=== PATIENT | female | born 1945 | race Caucasian/White ===

== ENCOUNTER 2019-03-23 12:05 | Day surgery (SDC) | payer MEDICARE ==
[~2019-03-23] VITALS: Ht 160 cm; Wt 81.0 kg
[2019-03-23] MEDS ORDERED: LACTATED RINGERS 1,000 ML IV SCH (12:45)
[2019-03-23 12:57] VITALS: BP 125/79
[2019-03-23] MEDS ORDERED: RISP1TAB45 PO (12:57)
[2019-03-23] MEDS ORDERED: DIVA500T2 PO (12:57)
[2019-03-23] MEDS ORDERED: LIDOCAINE-MPF 1%, 2ML INFIL ONE (13:00)
[2019-03-23 13:10] VITALS: BP 125/79
[2019-03-23] MEDS ORDERED: PROPOFOL 10 MG/ML, 20ML ONE (13:37)
[2019-03-23] MEDS ORDERED: ONDANSETRON ODT 8 MG PO PRN (14:30)
[2019-03-23] MEDS ORDERED: FENTANYL PF 100 MCG/2ML IV PRN (14:30)
[2019-03-23] MEDS ORDERED: MIDAZOLAM 1 MG/ML, 2ML IV PRN (14:30)
[2019-03-23] MEDS ORDERED: OXYcodone 5 MG/5 ML ORAL.SOL UDC PO PRN (14:30)
[2019-03-23] MEDS ORDERED: ONDANSETRON 2MG/ML, 2ML IV PRN (14:30)
[2019-03-23] MEDS ORDERED: DIAZEPAM 5 MG/ML, 2ML IVPush PRN (14:30)
== END 2019-03-23 15:45 | disposition home or self-care (01) ==
LOC: OUT 12:05
PROVIDERS: ATTEND Internal Medicine Gastroenterology
DX: D12.8 Benign neoplasm of rectum (principal); Z98.0 Intestinal bypass and anastomosis status; Z85.038 Personal history of other malignant neoplasm of large intestine; Z88.5 Allergy status to narcotic agent
CPT/HCPCS: 45342; 88305; 93005; J2704; J7120

== ENCOUNTER → 2020-05-18 | Outpatient (CLI) | payer MEDICARE ==
[~2020-05-18] MED LIST: DIVA500T2 PO; RISP1TAB45 PO
== END | disposition home or self-care (01) ==
LOC: STAR 16:04
PROVIDERS: ATTEND Surgery
DX: Z20.828 Contact with and (suspected) exposure to other viral communicable diseases (principal)
CPT/HCPCS: 36415; 87635

== ENCOUNTER 2020-05-23 09:27 | Day surgery (SDC) | payer MEDICARE ==
[~2020-05-23] VITALS: Ht 160 cm; Wt 83.3 kg
[~2020-05-23 09:27] MED LIST changes: +BUPIVACAINE/PF 0.5% ONE; +EPINEPHRINE 1 MG/ML, 1ML ONE
[2020-05-23] MEDS ORDERED: FENTANYL PF 100 MCG/2ML ONE (09:45)
[2020-05-23] MEDS ORDERED: HYDROcodone/APAP 7.5-325MG/15ML UDC PO PRN (10:00)
[2020-05-23] MEDS ORDERED: PROMETHAZINE 25 MG/ML, 1ML IVPush PRN (10:00)
[2020-05-23] MEDS ORDERED: MEPERIDINE/PF 25MG/0.5ML IVPush PRN (10:00)
[2020-05-23] MEDS ORDERED: DIPHENHYDRAMINE 50 MG/ML, 1ML IVPush PRN (10:00)
[2020-05-23] MEDS ORDERED: LABETALOL 5MG/ML, 20ML IV PRN (10:00)
[2020-05-23] MEDS ORDERED: FENTANYL PF 100 MCG/2ML IV PRN (10:00)
[2020-05-23] MEDS ORDERED: hydrALAzine 20 MG/ML, 1ML IV PRN (10:00)
[2020-05-23] MEDS ORDERED: HYDROmorphone 1 MG/ML, 1ML INJ IVPush PRN (10:00)
[2020-05-23] MEDS ORDERED: HALOPERIDOL 5 MG/ML IV PRN (10:00)
[2020-05-23] MEDS ORDERED: LACTATED RINGERS 1,000 ML IV SCH (10:23)
[2020-05-23 10:30] VITALS: BP 130/77
[2020-05-23] MEDS ORDERED: CHLORHEXIDINE 15 ML UDC MM ONE (10:30)
[2020-05-23] MEDS ORDERED: ONDANSETRON 2MG/ML, 2ML ONE (11:12)
[2020-05-23] MEDS ORDERED: GLYCOPYRROLATE 0.2MG/1ML, 5ML ONE (11:12)
[2020-05-23] MEDS ORDERED: PROPOFOL 10 MG/ML, 20ML ONE (11:12)
[2020-05-23] MEDS ORDERED: CEFAZOLIN 1,000 MG ONE (11:12)
[2020-05-23] MEDS ORDERED: NEOSTIGMINE 1 MG/ML, 10ML ONE (11:12)
[2020-05-23] MEDS ORDERED: ROCURONIUM 10MG/ML,5ML ONE (11:12)
[2020-05-23] MEDS ORDERED: SUCCINYLCHOLINE 20 MG/ML, 10ML ONE (11:12)
[2020-05-23] MEDS ORDERED: DEXAMETHASONE 4 MG/ML, 1ML ONE (11:12)
[2020-05-23] MEDS ORDERED: THROMBIN 20,000 UNIT VIAL TP ONE (12:25)
== END 2020-05-23 13:20 | disposition home or self-care (01) ==
LOC: OUT 09:27
PROVIDERS: ATTEND Surgery
DX: K62.89 Other specified diseases of anus and rectum (principal); D12.8 Benign neoplasm of rectum; R15.9 Full incontinence of feces; F31.9 Bipolar disorder, unspecified; Z79.899 Other long term (current) drug therapy; Z85.048 Personal history of other malignant neoplasm of rectum, rectosigmoid junction, and anus; Z87.891 Personal history of nicotine dependence; Z88.5 Allergy status to narcotic agent; Z91.013 Allergy to seafood; Z90.49 Acquired absence of other specified parts of digestive tract; Z90.710 Acquired absence of both cervix and uterus; Z98.890 Other specified postprocedural states; Z82.49 Family history of ischemic heart disease and other diseases of the circulatory system
CPT/HCPCS: 45172; 88305; 93005; J0171; J0330; J0690; J1100; J2405; J2704; J3010; J2710

== ENCOUNTER → 2020-11-01 | Outpatient (CLI) | payer MEDICARE ==
[~2020-11-01] MED LIST changes: -BUPIVACAINE/PF 0.5% ONE; -EPINEPHRINE 1 MG/ML, 1ML ONE
[2020-11-01 14:59] LABS: BASOPHILS % (AUTO) 1 % (0-1); EOSINOPHILS % (AUTO) 1 % (1-7); LYMPHOCYTES % (AUTO) 32 % (22-44); MEAN CORPUSCULAR HEMOGLOBIN 29.6 pg (27.0-34.8); MEAN CORPUSCULAR HGB CONC 33.5 g/dL (32.4-35.8); MONOCYTES % (AUTO) 5 % (2-9); NEUTROPHILS % (AUTO) 61 % (42-75); PLATELET COUNT 285 x10^3/uL (130-400); RED BLOOD COUNT 4.76 x10^6/uL (3.82-5.3); RED CELL DISTRIBUTION WIDTH 15.2 % (9.6-15.2)
[2020-11-01 15:00] LABS: MD NO
[2020-11-01 15:09] LABS: ALANINE AMINOTRANSFERASE 20 U/L (12-78); ALBUMIN 3.6 g/dL (3.4-5.0); ANION GAP 6 mmol/L (5-15); CALCIUM 8.9 mg/dL (8.5-10.1); CHLORIDE 107 mmol/L (98-107)
[2020-11-01 15:11] LABS: ALKALINE PHOSPHATASE 68 U/L (45-117); BILIRUBIN,TOTAL 0.5 mg/dL (0.2-1.0); TOTAL PROTEIN 7.3 g/dL (6.4-8.2)
== END | disposition home or self-care (01) ==
LOC: STAR 12:47
PROVIDERS: ATTEND Surgery
DX: Z01.818 Encounter for other preprocedural examination (principal); I49.3 Ventricular premature depolarization; I21.19 ST elevation (STEMI) myocardial infarction involving other coronary artery of inferior wall; R94.31 Abnormal electrocardiogram [ECG] [EKG]; Z20.822 Contact with and (suspected) exposure to COVID-19
CPT/HCPCS: 80053; 85025; 87635; 93005

== ENCOUNTER 2020-11-06 11:21 | Outpatient (CLI) | payer MEDICARE | END 2020-11-06 23:59 | disposition home or self-care (01) | LOC: WOUND 11:21 | PROVIDERS: ATTEND Internal Medicine | DX: K94.09 Other complications of colostomy (principal); M19.90 Unspecified osteoarthritis, unspecified site; F31.9 Bipolar disorder, unspecified; H40.9 Unspecified glaucoma; Z85.048 Personal history of other malignant neoplasm of rectum, rectosigmoid junction, and anus; Z90.710 Acquired absence of both cervix and uterus | CPT/HCPCS: G0463 ==